=== PATIENT | female | born 1985 | race Caucasian/White ===

== ENCOUNTER 2020-09-30 09:25 | Observation (INO) | payer OTHER ==
[2020-09-30 10:40] VITALS: BP 115/67; PULSE 83; O2SAT 99
== END 2020-09-30 11:10 | disposition home or self-care (01) ==
LOC: WHC 09:25 → OB 09:50
PROVIDERS: ADMIT Obstetrics & Gynecology; ATTEND Obstetrics & Gynecology
DX: Z34.83 Encounter for supervision of other normal pregnancy, third trimester (principal); Z3A.35 35 weeks gestation of pregnancy
CPT/HCPCS: 59025; 59426; G0378; 81002

== ENCOUNTER 2020-10-10 15:15 | Observation (INO) | payer OTHER ==
[2020-10-10 15:37] LABS: ALBUMIN 3.9 g/dL (3.5-5.0); ALKALINE PHOSPHATASE 146 U/L (38-126); ANION GAP 11.5 MEQ/L (5-15); BLOOD UREA NITROGEN 9 mg/dL (7-17); CHLORIDE 105 mmol/L (98-107); Calcium 9.6 mg/dL (8.4-10.2); Carbon Dioxide 22 mmol/L (22-30); Creatinine 1 0.47 mg/dL (0.52-1.04); EST GLOMERULAR FILTRATION RATE > 60.0 ML/MIN; Glucose 87 mg/dL (74-106); Potassium 3.9 mmol/L (3.5-5.1); SGOT/AST 23 U/L (14-36); SGPT/ALT 14 U/L (0-35); SODIUM 135 mmol/L (137-145); Total Protein 6.9 g/dL (6.3-8.2)
[2020-10-10 20:04] VITALS: BP 127/75; PULSE 86
== END 2020-10-10 15:45 | disposition home or self-care (01) ==
LOC: OB 15:15
PROVIDERS: ADMIT Obstetrics & Gynecology; ATTEND Obstetrics & Gynecology
DX: Z34.83 Encounter for supervision of other normal pregnancy, third trimester (principal)
CPT/HCPCS: 36415; 80053; 83036; G0378

== ENCOUNTER 2020-10-16 09:55 | Observation (INO) | payer OTHER ==
[2020-10-16 11:14] VITALS: BP 125/75; PULSE 75; O2SAT 98
== END 2020-10-16 11:03 | disposition home or self-care (01) ==
LOC: OB 09:55
PROVIDERS: ADMIT Obstetrics & Gynecology; ATTEND Obstetrics & Gynecology
DX: Z34.83 Encounter for supervision of other normal pregnancy, third trimester (principal); Z3A.37 37 weeks gestation of pregnancy
CPT/HCPCS: 59025; 82947; G0378

== ENCOUNTER 2020-10-19 11:47 | Emergency (ER) | payer OTHER ==
--- NOTE | 2020-10-19 11:53 | ERPHSYRPT ---
- History of Present Illness Time Seen by Provider: 10/19/20 11:52 Source: patient Exam Limitations: no limitations Physician History: This is a 35-year-old white female who is 38 weeks and was fine and tell she had a coughing spell prior to her arrival here and felt sharp pain in the left lateral rib area. She felt a popping sensation. She just began smoking again. She is not short of breath. She has no abdominal pain. She states she was completely fine prior to that coughing episode. Patient has a obstetric appointment today at 1:00pm Timing/Duration: today Quality: sharp, stabbing Severity of Pain-Max: moderate Severity of Pain-Current: moderate Modifying Factors: Improves With: movement Associated Symptoms: denies symptoms Previous symptoms: no prior history Allergies/Adverse Reactions: No Known Drug Allergies Allergy (Verified 10/19/20 12:08) Home Medications: Aspirin EC 81 mg [Ecotrin 81 mg] 81 mg PO DAILY 09/30/20 [History] Levothyroxine Sodium [Euthyrox] 50 mcg PO DAILY 09/30/20 [History] Vits W-Ca,Fe,FA(<1Mg) [] 1 each PO DAILY 09/30/20 [History] Hx Tetanus, Diphtheria Vaccination/Date Given: Yes Hx Influenza Vaccination/Date Given: No Hx Pneumococcal Vaccination/Date Given: No Travel Risk - International Travel Have you traveled outside of the country in past 3 weeks: No - Coronavirus Screening Are you exhibiting any of the following symptoms?: No Close contact with a COVID-19 positive Pt in past 14-21 Days: No - Review of Systems Constitutional: No Symptoms Eyes: No Symptoms Ears, Nose, & Throat: No Symptoms Respiratory: No Symptoms Cardiac: No Symptoms Abdominal/Gastrointestinal: No Symptoms Genitourinary Symptoms: No Symptoms Musculoskeletal: Other (Left lateral rib pain), No Fall, No Injury Skin: No Symptoms Neurological: No Symptoms Psychological: No Symptoms Endocrine: No Symptoms Hematologic/Lymphatic: No Symptoms Immunological/Allergic: No Symptoms All Other Systems: Reviewed and Negative - Past Medical History Pertinent Past Medical History: Yes Neurological History: No Pertinent History ENT History: No Pertinent History Cardiac History: No Pertinent History Respiratory History: No Pertinent History Endocrine Medical History: Hypothyroidism Musculoskeletal History: No Pertinent History GI Medical History: No Pertinent History History: No Pertinent History Psycho-Social History: Bipolar Female Reproductive Disorders: No Pertinent History Other Medical History: OBTAINED HX PER PAST DOCUMENTATION PT REFUSING TO ANSWER - Past Surgical History Past Surgical History: No - Social History Smoking Status: Former smoker Exposure to second hand smoke: Yes Drug Use: none Patient Lives Alone: Yes - Nursing Vital Signs Nursing Vital Signs: Initial Vital Signs Temperature 98.0 F 10/19/20 11:55 Pulse Rate 102 H 10/19/20 11:55 Blood Pressure 132/86 10/19/20 11:55 O2 Sat by Pulse Oximetry 96 10/19/20 11:55 Pain Scale Pain Intensity 6 - Physical Exam General Appearance: moderate distress, alert, anxiety, other () Ears, Nose, Throat Exam: normal ENT inspection, moist mucous membranes Neck Exam: normal inspection, non-tender, supple, full range of motion Respiratory Exam: normal breath sounds, lungs clear, airway intact, No chest tenderness, No respiratory distress, No accessory muscle use Cardiovascular Exam: regular rate/rhythm, normal heart sounds, normal peripheral pulses Gastrointestinal Exam: soft, normal bowel sounds, other ( abdomen), No tenderness Pelvic Exam: not done Rectal Exam: not done Back Exam: other (Left lateral rib pain. Worse with palpation) Extremity Exam: normal inspection, normal range of motion, pelvis stable Neurologic Exam: alert, oriented x 3, cooperative, hat cone inspector II-XII nml as tested, normal mood/affect, nml cerebellar function, nml station & gait, sensation nml Skin Exam: normal color, warm, dry Lymphatic Exam: No adenopathy SpO2 Interpretation: normal O2 Delivery: Room Air - Course Nursing assessment & vital signs reviewed: Yes Ordered Tests: Active Orders 24 hr Category Date Time Status UA W/RFX UR CULTURE Stat Lab 10/19/20 12:14 Completed Medication Summary Discontinued Medications Generic Name Dose Route Start Last Admin Trade Name Anthonyq PRN Reason Stop Dose Admin Nalbuphine HCl 10 mg 10/19/20 12:12 10/19/20 12:19 Nalbuphine Hcl 10 Mg/1 Ml Injection IM 10/19/20 12:13 10 mg STAT STA Administration Nalbuphine HCl Confirm 10/19/20 12:16 Nubain 10 Mg/Ml Administered 10/19/20 12:17 Dose 10 mg .ROUTE .STK-MED ONE Ondansetron HCl 4 mg 10/19/20 12:13 10/19/20 12:19 Zofran Odt 4 Mg PO 10/19/20 12:14 4 mg STAT ONE Administration Ondansetron HCl Confirm 10/19/20 12:15 Zofran Odt 4 Mg Administered 10/19/20 12:16 Dose 4 mg .ROUTE .STK-MED ONE Lab/Rad Data: Laboratory Results 10/19/20 Range/Units 12:14 Urine Color YELLOW (YELLOW) Urine Appearance CLEAR (CLEAR) Urine pH 7.0 (5-6) Ur Specific [place] 1.004 (1.005-1.025) Urine Protein NEGATIVE (Negative) Urine Ketones NEGATIVE (NEGATIVE) Urine Blood SMALL (0-5) Johnny/ul Urine Nitrite NEGATIVE (NEGATIVE) Urine Bilirubin NEGATIVE (NEGATIVE) Urine Urobilinogen NEGATIVE (0-1) mg/dL Ur Leukocyte Esterase NEGATIVE (NEGATIVE) Urine WBC (Auto) NONE (0-5) /HPF Urine RBC (Auto) NONE (0-2) /HPF U Epithel Cells (Auto) NONE (FEW) /HPF Urine Bacteria (Auto) NONE (NEGATIVE) /HPF Urine Culture Reflexed NO (NO) Urine Glucose NEGATIVE (NEGATIVE) mg/dL - Progress Progress: improved, pain not gone completely, re-examined Progress Note: 10/19/20 12:10 Medical decision making: This patient is 38 weeks . She was completely fine prior to coughing spell when she started having left lateral rib pain. I feel strongly that this is muscle spasm/strain. Even if she did fracture her rib, there are no other treatment and pain control. I do not think it is necessary to obtain x-rays of her left ribs. We will provide her with pain control here in the emergency department. She will be instructed to keep her appointment today with her mapping editor and to use Tylenol for pain control as an outpatient or other treatment that her mapping editor can provide her. We will check a urinalysis. Counseled pt/family regarding: diagnosis, need for follow-up - Departure Departure Disposition: Home Clinical Impression: Rib pain on left side Condition: Stable Critical Care Time: No Referrals: BINDU CA [Primary Care Provider] - Additional Instructions: Use Tylenol for pain control. May alternate ice and heat to the area. Follow- up with your mapping editor today for further management and instructions.
[2020-10-19 12:08] VITALS: O2SAT 96
[2020-10-19] MEDS ORDERED: NALBUPHINE HCL 10 MG/1 ML INJECTION IM STA (12:12)
[2020-10-19] MEDS ORDERED: ZOFRAN ODT 4 MG PO ONE (12:13)
[2020-10-19] MEDS ORDERED: ZOFRAN ODT 4 MG ONE (12:15)
[2020-10-19] MEDS ORDERED: Nubain 10 MG/ML ONE (12:16)
[2020-10-19 12:40] LABS: Appearance CLEAR (CLEAR); Bilirubin NEGATIVE (NEGATIVE); Blood SMALL Ery/ul (0-5); Glucose NEGATIVE (NEGATIVE); Ketones NEGATIVE (NEGATIVE); Leukocyte Esterase NEGATIVE (NEGATIVE); Nitrite NEGATIVE (NEGATIVE); Protein,Urine Dip NEGATIVE (Negative); Specific Gravity 1.004 (1.005-1.025); Urobilinogen NEGATIVE mg/dL (0-1)
[2020-10-19 12:52] VITALS: BP 136/92; PULSE 92
== END 2020-10-19 12:52 | disposition home or self-care (01) ==
LOC: ED 11:47
DX: R07.81 Pleurodynia (principal)
CPT/HCPCS: 81001; 96372; 99284; J2300; Q0162

== ENCOUNTER 2020-10-19 15:43 | Observation (INO) | payer OTHER | END 2020-10-19 16:10 | disposition home or self-care (01) | LOC: ICU 15:43 → UNDOADMOB 15:43 → UNDODISOB 16:10 | PROVIDERS: ADMIT Obstetrics & Gynecology; ATTEND Obstetrics & Gynecology | DX: Z34.83 Encounter for supervision of other normal pregnancy, third trimester (principal) | CPT/HCPCS: 59025; G0378 ==

== ENCOUNTER 2020-10-26 20:06 | Inpatient (IN) | payer OTHER ==
[~2020-10-26 20:06] MED LIST: TYLENOL EXTRA STRENGTH 500 MG PO PRN; XYLOCAINE 1% HCL 20 ML MDV IJ PRN; Zofran 4 MG/2 ML VIAL IV PRN
[2020-10-26 21:02] LABS: Hematocrit 31.8 % (35-47); Hemoglobin 10.2 gm/dl (12.0-16.0); Mean Cell Volume 97.2 fl (78-100); Mean Corpuscular Hemoglobin 31.2 pg (26-32); Mean Corpuscular Hgb Concent. 32.1 g/dl (32-36); Mean Platelet Volume 8.4 fl (7.5-11.0); Platelet Count 460 K/mm3 (150-450); Red Blood Count 3.27 M/mm3 (4.1-5.4); Red Cell Distribution Width 13.6 % (11.5-14.0); White Blood Count 13.6 K/mm3 (4.0-10.5)
[2020-10-26 21:09] LABS: Amphetamine,Urine NEGATIVE (NEGATIVE); Barbiturate,Urine NEGATIVE (NEGATIVE); Benzodiazepine,Urine NEGATIVE (NEGATIVE); Cocaine,Urine NEGATIVE (NEGATIVE); Methadone,Urine NEGATIVE (NEGATIVE); Opiate,Urine NEGATIVE (NEGATIVE); PCP,Urine NEGATIVE (NEGATIVE); THC,Urine NEGATIVE (NEGATIVE)
[2020-10-26 22:09] LABS: BAND 1 % (0.0-2.0); Eosinophil 2 % (0.00-3.0); Lymphocytes 12 % (24-44); Monocyte 1 % (0.0-12.0); Neutrophils 84 % (36.0-66.0); Platelet Estimate NORMAL (NORMAL); Total Cells Counted 100
[2020-10-27] MEDS ORDERED: Sodium Chloride 100ML MINI-BAG PLUS 100 ML IV ONE ×2 (00:49→04:35)
[2020-10-27] MEDS ORDERED: OMNIPEN 2 GM ONE (00:49)
[2020-10-27] MEDS: Lactated Ringers 1,000 ML IV SCH ×3 (00:57→06:56)
[2020-10-27] MEDS ORDERED: OMNIPEN 2 GM*** 2 G in Sodium Chloride 100ML MINI-BAG PLUS 100 ML IV ONE (01:00)
[2020-10-27] MEDS: PITOCIN 30 UNITS/ LR 500 ML 30 UNITS/500 ML IV.SOLN. IV SCH ×2 (01:21→07:50)
[2020-10-27] MEDS ORDERED: OMNIPEN 1 GM ONE (04:35)
[2020-10-27] MEDS ORDERED: OMNIPEN 1 GM*** 1 GM in Sodium Chloride 100ML MINI-BAG PLUS 100 ML IV SCH (05:00)
[2020-10-27] MEDS ORDERED: Lactated Ringers 1,000 ML IV ONE (06:29)
[2020-10-27] MEDS ORDERED: Ephedrine Sulfate 50 MG/ML IV PRN (06:29)
[2020-10-27] MEDS ORDERED: OB EPIDURAL NAROPIN/SUFENTANIL IN NACL EPIDURAL PRN (06:29)
[2020-10-27] MEDS ORDERED: TRANEXAMIC ACID 1000 MG/10 ML 1,000 MG in Sodium Chloride 0.9% 100 ML IVPB 100 ML IV ONE (07:55)
[2020-10-27] MEDS ORDERED: TRANEXAMIC ACID 1000 MG/10 ML ONE (07:55)
[2020-10-27] MEDS ORDERED: Dermoplast Spray TP PRN (08:54)
[2020-10-27] MEDS ORDERED: TUCKS TP PRN (08:54)
[2020-10-27] MEDS ORDERED: LANSINOH 40 GM TOP PRN (08:54)
[2020-10-27] MEDS ORDERED: Mylicon 80MG PO PRN (08:54)
[2020-10-27] MEDS ORDERED: CORTISONE 1% CREAM TP PRN (08:54)
[2020-10-27] MEDS: Colace 100 MG PO SCH ×2 (10:09→21:26)
[2020-10-27] MEDS: FERREX 150 PO SCH (10:09)
[2020-10-27] MEDS: MOTRIN 400 MG PO PRN ×2 (10:09→20:05)
[2020-10-28 05:27] LABS: Hematocrit 25.7 % (35-47); Hemoglobin 8.2 gm/dl (12.0-16.0); Mean Cell Volume 98.8 fl (78-100); Mean Corpuscular Hemoglobin 31.5 pg (26-32); Mean Corpuscular Hgb Concent. 31.9 g/dl (32-36); Mean Platelet Volume 8.7 fl (7.5-11.0); Platelet Count 394 K/mm3 (150-450); Red Cell Distribution Width 13.2 % (11.5-14.0)
[2020-10-28 07:17] LABS: BAND 7 % (0.0-2.0); Eosinophil 1 % (0.00-3.0); Lymphocytes 18 % (24-44); Metamyelocyte 1 %; Monocyte 2 % (0.0-12.0); Neutrophils 71 % (36.0-66.0); Total Cells Counted 100
[2020-10-28 07:19] LABS: ANISOCYTOSIS RARE; Hypochromia 1+; Macrocytosis RARE; Poikilocytosis RARE; Polychromasia RARE
[2020-10-28 07:20] LABS: Platelet Estimate NORMAL (NORMAL)
[2020-10-28 07:21] LABS: Absolute Neutrophil Ct (ANC) 10.9 (1.4-6.9)
[2020-10-28] MEDS: MOTRIN 400 MG PO PRN (08:46)
[2020-10-28] MEDS: FERREX 150 PO SCH (08:46)
[2020-10-28] MEDS: Colace 100 MG PO SCH (08:46)
[2020-10-28 13:52] VITALS: BP 115/71; PULSE 85; O2SAT 97
== END 2020-10-28 14:28 | disposition home or self-care (01) | DRG 807 ==
LOC: OB 20:06 → OBSVTOIN 10-27 06:18
PROVIDERS: ADMIT Obstetrics & Gynecology; ATTEND Obstetrics & Gynecology
PROC: 10E0XZZ Delivery of Products of Conception, External Approach (ICD-10-PCS; principal; 2020-10-27)
DX: O80 Encounter for full-term uncomplicated delivery (principal); Z37.0 Single live birth; Z3A.39 39 weeks gestation of pregnancy
CPT/HCPCS: 36415; 59409; 80307; 85025; 87340; 94799; G0378; J0290; J2590; J2795; A9270-GY

== ENCOUNTER 2023-08-31 00:44 | Emergency (ER) | payer OTHER ==
[2023-08-31] MEDS ORDERED: Zofran 4 MG/2 ML VIAL IV ONE (01:29)
[2023-08-31] MEDS ORDERED: Sodium Chloride 0.9% 1000 ML 1,000 ML IV STA (01:29)
[2023-08-31 01:30] VITALS: RESP 18; TEMP 98
--- NOTE | 2023-08-31 01:34 | ERPHSYRPT ---
- History of Present Illness Time Seen by Provider: 08/31/23 01:22 Historian: patient Exam Limitations: no limitations Physician History: Pt states in the last 6.5 hours she has had vomiting x3, abdominal cramps and an intermittent frontal headache; denies chest pain, shortness of air, fever. LBM was today & wnl. Allergies/Adverse Reactions: No Known Drug Allergies Allergy (Verified 08/31/23 01:12) Home Medications: Naltrexone Microspheres [Vivitrol] 4 ml IM UD 08/31/23 [History] Hx Tetanus, Diphtheria Vaccination/Date Given: Yes Hx Influenza Vaccination/Date Given: No Hx Pneumococcal Vaccination/Date Given: No - Review of Systems Constitutional: No Fever Respiratory: No Dyspnea Cardiac: No Chest Pain Abdominal/Gastrointestinal: Abdominal Pain, Vomiting, No Diarrhea Neurological: Headache - Past Medical History Pertinent Past Medical History: Yes Neurological History: No Pertinent History ENT History: No Pertinent History Cardiac History: No Pertinent History Respiratory History: No Pertinent History Endocrine Medical History: Hypothyroidism Musculoskeletal History: No Pertinent History GI Medical History: No Pertinent History History: No Pertinent History Psycho-Social History: Anxiety, Bipolar, Panic Disorder, Other Female Reproductive Disorders: Cervical Cancer Other Medical History: CERVICAL CANCER WILL BE SEEING HER ONCOLOGIST, HITESHT - Past Surgical History Past Surgical History: No Neuro Surgical History: No Pertinent History Cardiac: No Pertinent History Respiratory: No Pertinent History Gastrointestinal: No Pertinent History Genitourinary: No Pertinent History Musculoskeletal: No Pertinent History Female Surgical History: No Pertinent History Other Surgical History: HAD WISDOM TEETH REMOVED - Social History Smoking Status: Former smoker Exposure to second hand smoke: Yes Drug Use: none Patient Lives Alone: Yes - Nursing Vital Signs Nursing Vital Signs: Initial Vital Signs Pulse Rate 80 08/31/23 01:15 Respiratory Rate 20 08/31/23 01:15 Blood Pressure 124/96 08/31/23 01:15 O2 Sat by Pulse Oximetry 95 08/31/23 01:15 Pain Scale Pain Intensity 3 - Physical Exam General Appearance: alert Eye Exam: PERRL/EOMI Ears, Nose, Throat Exam: TMs normal, pharyngeal erythema Neck Exam: normal inspection Respiratory Exam: lungs clear Cardiovascular Exam: normal heart sounds Gastrointestinal/Abdomen Exam: soft, normal bowel sounds Back Exam: normal inspection Extremity Exam: No swelling Neurologic Exam: alert, cooperative Skin Exam: warm, dry - CT Exams Abdomen/Pelvis CT Interpretation: Tele-radiologist Report (Unremarkable study) Ordered Tests: Active Orders 24 hr Category Date Time Status ABDOMEN AND PELVIS W/0 CONTRAS [CT] Stat Exams 08/31/23 01:30 Completed AMYLASE Stat Lab 08/31/23 01:38 Completed CBC W DIFF Stat Lab 08/31/23 01:38 Completed CMP Stat Lab 08/31/23 01:38 Completed ETHYL ALCOHOL Stat Lab 08/31/23 01:38 Completed HCG QUALITATIVE, SERUM Stat Lab 08/31/23 01:38 Completed LIPASE Stat Lab 08/31/23 01:38 Completed UA W/RFX UR CULTURE Stat Lab 08/31/23 01:38 Completed Urine Triage Profile Stat Lab 08/31/23 01:38 Completed Medication Summary Discontinued Medications Generic Name Dose Route Start Last Admin Trade Name Anthonyq PRN Reason Stop Dose Admin Sodium Chloride 1,000 mls @ 999 mls/hr 08/31/23 01:29 08/31/23 02:47 Sodium Chloride 0.9% 1000 Ml IV 08/31/23 02:29 Infused .Q1H1M STA Infusion Sodium Chloride Confirm 08/31/23 01:39 Sodium Chloride 0.9% 1000 Ml Administered 08/31/23 01:40 Dose 1,000 mls @ ud .ROUTE .STK-MED ONE Ondansetron HCl 4 mg 08/31/23 01:29 08/31/23 01:42 Ondansetron Hcl 4 Mg/2 Ml Vial IV 08/31/23 01:30 4 mg STAT ONE Administration Ondansetron HCl Confirm 08/31/23 01:38 Ondansetron Hcl 4 Mg/2 Ml Vial Administered 08/31/23 01:39 Dose 4 mg .ROUTE .STK-MED ONE Lab/Rad Data: Laboratory Result Diagrams 08/31/23 01:38 08/31/23 01:38 Laboratory Results 08/31/23 08/31/23 08/31/23 Range/Units 01:45 01:45 01:38 WBC (4.0-10.5) x10^3/uL RBC (4.1-5.4) x10^6/uL Hgb (12.0-16.0) g/dL Hct (35-47) % MCV (78-100) fL MCH (26-32) pg MCHC (32-36) g/dL RDW (11.5-14.0) % Plt Count (150-450) x10^3/uL MPV (7.5-11.0) fL Gran % (36.0-66.0) % Immature Gran % (Auto) (0.00-0.4) % Nucleat RBC Rel Count (0.00-0.1) % Eos # (Auto) (0-0.5) x10^3/uL Immature Gran # (Auto) (0.00-0.03) x10^3u/L Absolute Lymphs (auto) (1.0-4.6) x10^3/uL Absolute Monos (auto) (0.0-1.3) x10^3/uL Absolute Nucleated RBC (0.00-0.01) x10^3u/L Lymphocytes % (24.0-44.0) % Monocytes % (0.0-12.0) % Eosinophils % (0.00-5.0) % Basophils % (0.0-0.4) % Absolute Granulocytes (1.4-6.9) x10^3/uL Basophils # (0-0.4) x10^3/uL Sodium (137-145) mmol/L Potassium (3.5-5.1) mmol/L Chloride (98-107) mmol/L Carbon Dioxide (22-30) mmol/L Anion Gap (5-15) MEQ/L BUN (7-17) mg/dL Creatinine (0.52-1.04) mg/dL Estimated GFR ML/MIN Glucose (74-106) mg/dL Calcium (8.4-10.2) mg/dL Total Bilirubin (0.2-1.3) mg/dL AST (14-36) U/L ALT (0-35) U/L Alkaline Phosphatase (38-126) U/L Serum Total Protein (6.3-8.2) g/dL Albumin (3.5-5.0) g/dL Amylase (30-110) U/L Lipase (23-300) U/L Serum HCG, Qual NEGATIVE (NEGATIVE) Urine Color (Yellow) Urine Appearance (Clear) Urine pH (4.6-8.0) Ur Specific [place] (1.005-1.030) Urine Protein (Negative) Urine Glucose (UA) (Negative) mg/dL Urine Ketones (Negative) Urine Blood (Negative) Urine Nitrite (Negative) Urine Bilirubin (Negative) Urine Urobilinogen (0.2) mg/dL Ur Leukocyte Esterase (Negative) U Hyaline Cast (Auto) (0-2) /LPF Urine Microscopic RBC (0-5) /HPF Urine Microscopic WBC (0-5) /HPF Ur Epithelial Cells (None Seen) /HPF Urine Bacteria (None Seen) /HPF Urine Culture Reflexed (NO) Urine Opiates Level (NEGATIVE) Ur Methadone (NEGATIVE) Urine Barbiturates (NEGATIVE) Ur Phencyclidine (PCP) (NEGATIVE) Urine Amphetamine (NEGATIVE) U Benzodiazepine Level (NEGATIVE) Urine Cocaine (NEGATIVE) Urine Marijuana (THC) (NEGATIVE) Ethyl Alcohol (0-10) mg/dL Influenza Type A Ag NEGATIVE (NEGATIVE) Influenza Type B Ag NEGATIVE (NEGATIVE) RSV (PCR) NEGATIVE (NEGATIVE) SARS-CoV-2 (PCR) NEGATIVE (NEGATIVE) Group A Strep Antibody NOT DETECTED (NEGATIVE) 08/31/23 08/31/23 08/31/23 Range/Units 01:38 01:38 01:38 WBC (4.0-10.5) x10^3/uL RBC (4.1-5.4) x10^6/uL Hgb (12.0-16.0) g/dL Hct (35-47) % MCV (78-100) fL MCH (26-32) pg MCHC (32-36) g/dL RDW (11.5-14.0) % Plt Count (150-450) x10^3/uL MPV (7.5-11.0) fL Gran % (36.0-66.0) % Immature Gran % (Auto) (0.00-0.4) % Nucleat RBC Rel Count (0.00-0.1) % Eos # (Auto) (0-0.5) x10^3/uL Immature Gran # (Auto) (0.00-0.03) x10^3u/L Absolute Lymphs (auto) (1.0-4.6) x10^3/uL Absolute Monos (auto) (0.0-1.3) x10^3/uL Absolute Nucleated RBC (0.00-0.01) x10^3u/L Lymphocytes % (24.0-44.0) % Monocytes % (0.0-12.0) % Eosinophils % (0.00-5.0) % Basophils % (0.0-0.4) % Absolute Granulocytes (1.4-6.9) x10^3/uL Basophils # (0-0.4) x10^3/uL Sodium 139 (137-145) mmol/L Potassium 3.5 (3.5-5.1) mmol/L Chloride 103 (98-107) mmol/L Carbon Dioxide 25 (22-30) mmol/L Anion Gap 14.2 (5-15) MEQ/L BUN 14 (7-17) mg/dL Creatinine 0.63 (0.52-1.04) mg/dL Estimated GFR 114.9 ML/MIN Glucose 104 (74-106) mg/dL Calcium 9.1 (8.4-10.2) mg/dL Total Bilirubin 0.60 (0.2-1.3) mg/dL AST 32 (14-36) U/L ALT 24 (0-35) U/L Alkaline Phosphatase 61 (38-126) U/L Serum Total Protein 7.8 (6.3-8.2) g/dL Albumin 4.8 (3.5-5.0) g/dL Amylase 70 (30-110) U/L Lipase 54 (23-300) U/L Serum HCG, Qual (NEGATIVE) Urine Color Yellow (Yellow) Urine Appearance Cloudy A (Clear) Urine pH 8.5 A (4.6-8.0) Ur Specific [place] 1.025 (1.005-1.030) Urine Protein 30 (Negative) Urine Glucose (UA) Negative (Negative) mg/dL Urine Ketones Negative (Negative) Urine Blood Negative (Negative) Urine Nitrite Negative (Negative) Urine Bilirubin Negative (Negative) Urine Urobilinogen 0.2 (0.2) mg/dL Ur Leukocyte Esterase Negative (Negative) U Hyaline Cast (Auto) NONE SEEN (0-2) /LPF Urine Microscopic RBC 6-10 A (0-5) /HPF Urine Microscopic WBC 0-2 (0-5) /HPF Ur Epithelial Cells Moderate A (None Seen) /HPF Urine Bacteria None Seen (None Seen) /HPF Urine Culture Reflexed NO (NO) Urine Opiates Level NEGATIVE (NEGATIVE) Ur Methadone NEGATIVE (NEGATIVE) Urine Barbiturates NEGATIVE (NEGATIVE) Ur Phencyclidine (PCP) NEGATIVE (NEGATIVE) Urine Amphetamine NEGATIVE (NEGATIVE) U Benzodiazepine Level NEGATIVE (NEGATIVE) Urine Cocaine NEGATIVE (NEGATIVE) Urine Marijuana (THC) NEGATIVE (NEGATIVE) Ethyl Alcohol 70 H (0-10) mg/dL Influenza Type A Ag (NEGATIVE) Influenza Type B Ag (NEGATIVE) RSV (PCR) (NEGATIVE) SARS-CoV-2 (PCR) (NEGATIVE) Group A Strep Antibody (NEGATIVE) 08/31/23 Range/Units 01:38 WBC 10.1 (4.0-10.5) x10^3/uL RBC 4.02 L (4.1-5.4) x10^6/uL Hgb 13.4 (12.0-16.0) g/dL Hct 40.1 (35-47) % MCV 99.8 (78-100) fL MCH 33.3 H (26-32) pg MCHC 33.4 (32-36) g/dL RDW 13.3 (11.5-14.0) % Plt Count 395 (150-450) x10^3/uL MPV 8.4 (7.5-11.0) fL Gran % 69.2 H (36.0-66.0) % Immature Gran % (Auto) 0.4 (0.00-0.4) % Nucleat RBC Rel Count 0.0 (0.00-0.1) % Eos # (Auto) 0.03 (0-0.5) x10^3/uL Immature Gran # (Auto) 0.04 H (0.00-0.03) x10^3u/L Absolute Lymphs (auto) 2.64 (1.0-4.6) x10^3/uL Absolute Monos (auto) 0.36 (0.0-1.3) x10^3/uL Absolute Nucleated RBC 0.00 (0.00-0.01) x10^3u/L Lymphocytes % 26.1 (24.0-44.0) % Monocytes % 3.6 (0.0-12.0) % Eosinophils % 0.3 (0.00-5.0) % Basophils % 0.4 (0.0-0.4) % Absolute Granulocytes 7.00 H (1.4-6.9) x10^3/uL Basophils # 0.04 (0-0.4) x10^3/uL Sodium (137-145) mmol/L Potassium (3.5-5.1) mmol/L Chloride (98-107) mmol/L Carbon Dioxide (22-30) mmol/L Anion Gap (5-15) MEQ/L BUN (7-17) mg/dL Creatinine (0.52-1.04) mg/dL Estimated GFR ML/MIN Glucose (74-106) mg/dL Calcium (8.4-10.2) mg/dL Total Bilirubin (0.2-1.3) mg/dL AST (14-36) U/L ALT (0-35) U/L Alkaline Phosphatase (38-126) U/L Serum Total Protein (6.3-8.2) g/dL Albumin (3.5-5.0) g/dL Amylase (30-110) U/L Lipase (23-300) U/L Serum HCG, Qual (NEGATIVE) Urine Color (Yellow) Urine Appearance (Clear) Urine pH (4.6-8.0) Ur Specific [place] (1.005-1.030) Urine Protein (Negative) Urine Glucose (UA) (Negative) mg/dL Urine Ketones (Negative) Urine Blood (Negative) Urine Nitrite (Negative) Urine Bilirubin (Negative) Urine Urobilinogen (0.2) mg/dL Ur Leukocyte Esterase (Negative) U Hyaline Cast (Auto) (0-2) /LPF Urine Microscopic RBC (0-5) /HPF Urine Microscopic WBC (0-5) /HPF Ur Epithelial Cells (None Seen) /HPF Urine Bacteria (None Seen) /HPF Urine Culture Reflexed (NO) Urine Opiates Level (NEGATIVE) Ur Methadone (NEGATIVE) Urine Barbiturates (NEGATIVE) Ur Phencyclidine (PCP) (NEGATIVE) Urine Amphetamine (NEGATIVE) U Benzodiazepine Level (NEGATIVE) Urine Cocaine (NEGATIVE) Urine Marijuana (THC) (NEGATIVE) Ethyl Alcohol (0-10) mg/dL Influenza Type A Ag (NEGATIVE) Influenza Type B Ag (NEGATIVE) RSV (PCR) (NEGATIVE) SARS-CoV-2 (PCR) (NEGATIVE) Group A Strep Antibody (NEGATIVE) - Progress Progress: improved Counseled pt/family regarding: lab results, diagnosis, need for follow-up, rad results Medical Desision Making - Diagnostic Testing Diagnostic test were ordered, analyzed, and reviewed by me: Yes Radiological Interpretation: Teleradiologist Report - Departure Departure Disposition: Home Clinical Impression: Abdominal pain, Vomiting Condition: Stable Critical Care Time: No Referrals: BINDU CA [Primary Care Provider] - Follow up/PCP as directed Instructions: Severe Abdominal Pain, Adult (DC), Nausea and Vomiting, Adult (DC) Additional Instructions: Follow up with private doctor today. Start clear liquids for the next 12 hours then start a soft bland diet. No milk or juice for the next 2 days. Do not consume alcoholic beverages. Forms: Work/School Release Form Prescriptions: Ondansetron ODT 4 MG [Zofran Odt 4 mg] 4 mg PO Q6H PRN PRN #10 tablet PRN Reason: Nausea
[2023-08-31] MEDS ORDERED: Zofran 4 MG/2 ML VIAL ONE (01:38)
[2023-08-31] MEDS ORDERED: Sodium Chloride 0.9% 1000 ML 1,000 ML ONE (01:39)
[2023-08-31 01:41] LABS: BASOPHIL % 0.4 % (0.0-0.4); Basophil (Absolute #) 0.04 x10^3/uL (0-0.4); Eosinophil % 0.3 % (0.00-5.0); Eosinophil (Absolute #) 0.03 x10^3/uL (0-0.5); Hematocrit 40.1 % (35-47); Hemoglobin 13.4 g/dL (12.0-16.0); IMMATURE GRAN # 0.04 x10^3u/L (0.00-0.03); IMMATURE GRAN % 0.4 % (0.00-0.4); Lymphocyte (Absolute #) 2.64 x10^3/uL (1.0-4.6); Lymphocytes % 26.1 % (24.0-44.0); Mean Cell Volume 99.8 fL (78-100); Mean Corpuscular Hemoglobin 33.3 pg (26-32); Mean Corpuscular Hgb Concent. 33.4 g/dL (32-36); Mean Platelet Volume 8.4 fL (7.5-11.0); Monocyte (Absolute #) 0.36 x10^3/uL (0.0-1.3); Monocytes % 3.6 % (0.0-12.0); Neutrophil % 69.2 % (36.0-66.0); Platelet Count 395 x10^3/uL (150-450); Red Blood Count 4.02 x10^6/uL (4.1-5.4); Red Cell Distribution Width 13.3 % (11.5-14.0); White Blood Count 10.1 x10^3/uL (4.0-10.5)
[2023-08-31 01:51] LABS: ADD URINE CULTURE? NO (NO); Appearance Cloudy (Clear); Bacteria None Seen /HPF (None Seen); Bilirubin Negative (Negative); Blood Negative (Negative); Epithelial Cells Moderate /HPF (None Seen); Glucose, Urine Negative (Negative); Hyaline Casts NONE SEEN /LPF (0-2); Ketones Negative (Negative); Leukocyte Esterase Negative (Negative); Nitrite Negative (Negative); Ph 8.5 (4.6-8.0); Protein,Urine Dip 30 (Negative); Specific Gravity 1.025 (1.005-1.030); Urobilinogen 0.2 mg/dL (0.2); WBC 0-2 /HPF (0-5)
[2023-08-31 01:55] LABS: HCG SERUM TEST NEGATIVE (NEGATIVE)
[2023-08-31 01:57] LABS: ALBUMIN 4.8 g/dL (3.5-5.0); ANION GAP 14.2 MEQ/L (5-15); BILIRUBIN,TOTAL 0.6 mg/dL (0.2-1.3); Calcium 9.1 mg/dL (8.4-10.2); Creatinine 1 0.63 mg/dL (0.52-1.04); EST GLOMERULAR FILTRATION RATE 114.9 ML/MIN; Potassium 3.5 mmol/L (3.5-5.1); Total Protein 7.8 g/dL (6.3-8.2)
[2023-08-31 02:02] LABS: Amphetamine,Urine NEGATIVE (NEGATIVE); Barbiturate,Urine NEGATIVE (NEGATIVE); Benzodiazepine,Urine NEGATIVE (NEGATIVE); Cocaine,Urine NEGATIVE (NEGATIVE); Methadone,Urine NEGATIVE (NEGATIVE); Opiate,Urine NEGATIVE (NEGATIVE); PCP,Urine NEGATIVE (NEGATIVE); THC,Urine NEGATIVE (NEGATIVE)
[2023-08-31 02:29] LABS: INFLUENZA A NEGATIVE (NEGATIVE); INFLUENZA B NEGATIVE (NEGATIVE); RESPIRATORY SYNCTIAL VIRUS NEGATIVE (NEGATIVE); SARS-CoV-2 Xpert Express NEGATIVE (NEGATIVE)
[2023-08-31 03:12] VITALS: PULSE 62
--- NOTE | 2023-08-31 03:14 | XRAY ---
CLINICAL HISTORY:abdominal pain/vomiting COMPARISON:None TECHNIQUE:Contiguous axial images were obtained from the level of the diaphragm to the pubic symphysis without intravenous or oral contrast. Coronal and sagittal reconstructions were likewise performed and indicated to increase the sensitivity for detecting clinically relevant pathology. CT scan was performed according to ALARA (as low as reasonable achievable) FINDINGS: The visualized lung bases are clear. Evaluation of the abdominal and pelvic visceral organs is limited without intravenous contrast. The unenhanced liver, spleen, pancreas, and adrenal glands are grossly unremarkable. The gallbladder is present. The kidneys are normal in size and attenuation without obvious calcification. There is no hydronephrosis or perinephric stranding. The ureters are normal in caliber. No adenopathy or fluid collections are seen. No evidence of focal or diffuse bowel wall thickening or evidence of bowel obstruction is seen. The appendix is visualized in the right lower quadrant and appears within normal limits. The aorta is normal in caliber. The urinary bladder is normal in contour. Pelvic viscera are grossly unremarkable. No aggressive appearing osseous lesions are identified. IMPRESSION: 1. Unremarkable study. Electronically Signed by: Dr. Kolby Berry MD. (08/31/2023 03:10:35 EST)
[2023-08-31 04:14] VITALS: BP 138/90; O2SAT 95
== END 2023-08-31 04:15 | disposition home or self-care (01) ==
LOC: ED 00:44
DX: R11.10 Vomiting, unspecified (principal); R10.9 Unspecified abdominal pain; R51.9 Headache, unspecified; Z79.899 Other long term (current) drug therapy
CPT/HCPCS: 0241U; 36000; 36415; 74176; 80053; 80307; 81001; 82077; 82150; 83690; 84703; 85025; 87651; 96360; 96374; 99284; J2405